=== PATIENT | female | born 1965 ===

== ENCOUNTER 2022-08-28 22:38 | Emergency (ER) | payer BC ==
[2022-08-28] MEDS: Sodium Chloride 0.9% 10 ML Syringe FLUSH PRN (23:05)
[2022-08-28] MEDS ORDERED: Aspirin 81 MG Tab.Chew PO ONE (23:26)
[2022-08-28] MEDS ORDERED: Nitroglycerin 0.4 MG Tab.SL SL ONE (23:27)
[2022-08-28] MEDS ORDERED: Sodium Chloride 0.9% 1,000 ML IV SCH (23:45)
[2022-08-28 23:48] LABS: ESTIMATED GFR 61 mL/min (>60); TROPONIN I HIGH SENSITIVITY 4.2 pg/ml (<=60.4)
[2022-08-29] MEDS: Sodium Chloride 0.9% 10 ML Syringe FLUSH PRN (00:35)
[2022-08-29 02:51] VITALS: BP 108/69; PULSE 74
== END 2022-08-29 02:40 | disposition home or self-care (01) ==
LOC: SUPCPDRO 22:38 → LB.ED 22:38
DX: R07.89 Other chest pain (principal); Z91.040 Latex allergy status; Z88.5 Allergy status to narcotic agent; Z88.0 Allergy status to penicillin
CPT/HCPCS: 36415; 71045; 80048; 83735; 84100; 84484; 85027; 85379; 93005; 93010; 96360; 96361; 99283; 99284-25; A9270-GY; J3490; J7030